=== PATIENT | female | born 1970 | race Asian ===

== ENCOUNTER 2023-10-14 06:44 | Day surgery (SDC) | payer OTHER ==
[~2023-10-14] VITALS: Ht 152.4 cm; Wt 58.5 kg
[2023-10-14] MEDS ORDERED: fentaNYL citrate 0.05 MG/ML VIAL ONE (08:04)
[2023-10-14] MEDS ORDERED: LIDOCAINE 2% 100 MG/5 ML UJET TP ONE (08:04)
[2023-10-14] MEDS: fentaNYL citrate 0.05 MG/ML VIAL IVP ONE (08:24)
[2023-10-14] MEDS: LIDOCAINE 2% 100 MG/5 ML UJET TP ONE (08:36)
== END 2023-10-14 09:48 | disposition home or self-care (01) ==
LOC: MMU 06:44 → MDS 06:44
PROVIDERS: ATTEND Internal Medicine Gastroenterology
DX: Z12.11 Encounter for screening for malignant neoplasm of colon (principal); E78.5 Hyperlipidemia, unspecified; E03.9 Hypothyroidism, unspecified; Z98.891 History of uterine scar from previous surgery; Z98.890 Other specified postprocedural states; Z79.899 Other long term (current) drug therapy
CPT/HCPCS: J3010